=== PATIENT | female | born 1965 | race Caucasian/White ===

== ENCOUNTER 2021-12-11 00:26 | Emergency (ER) | payer OTHER ==
[~2021-12-11 00:26] MED LIST: ATIVAN0.5 MG PO; CARAFATE1 GM PO; COQ-10100 MG PO; COZAAR100 MG PO; FIORICET1 EACH PO; HABITROL7 MG TD; MAGNESIUM250 M1 PO; MEDROL 4MG DOSEP4 MG PO; NAPROSYN500 MG PO; NORVASC2.5 MG PO; OSTERA TABLET1 EACH PO; PEPCID AC20 MG PO; PERCOCET 10/321 EACH PO; PRAVACHOL20 MG PO; PROTONIX 40MG T40 MG PO; TENORMIN50 MG PO; VALSARTAN160 MG PO; ZANAFLEX4 M1 PO
[2021-12-11 01:14] LABS: BASOPHIL 0.6 % (0-2); HCT 43.8 % (37.0-47.0); LYMPHOCYTE 41.8 % (15-48); MCH 31.8 pg (25.0-31.0); MCHC 34.2 g/dL (32.0-36.0); MCV 92.8 fL (78.0-100.0); MONOCYTE 7.8 % (0-12); MPV 8.5 fL (6.0-9.5); NEUTROPHIL 47.5 % (41-80); NRBC 0; PLT 182 K/uL (150-400); RBC 4.72 M/uL (4.20-5.40); RDW 12.4 % (11.5-14.0); WBC 7.8 K/uL (4.0-10.5)
[2021-12-11 01:26] LABS: ALBUMIN 4.2 g/dL (3.4-5.0); BILIRUBIN - TOTAL 0.3 mg/dL (0.2-1.0); BUN/CREAT RATIO (CALC) 28.6 RATIO; CREATININE 0.7 mg/dL (0.51-0.95); GLOBULIN (CALCULATION) 3.2 g/dL; POTASSIUM 3.2 mmol/L (3.5-5.1); TOTAL PROTEIN 7.4 g/dL (6.4-8.2)
== END 2021-12-11 03:54 | disposition home or self-care (01) ==
LOC: FER 00:26
PROVIDERS: Emergency Medicine
DX: R07.89 Other chest pain (principal); I10 Essential (primary) hypertension; F17.200 Nicotine dependence, unspecified, uncomplicated; Z20.822 Contact with and (suspected) exposure to COVID-19; Z79.899 Other long term (current) drug therapy
CPT/HCPCS: 36415; 71045; 71275; 80053; 83735; 84484; 85025; 85379; Q9967; U0002

== ENCOUNTER 2022-05-08 08:21 | Emergency (ER) | payer OTHER ==
[2022-05-08 09:53] LABS: BASOPHIL 0.6 % (0-2); EOSINOPHIL 1.3 % (0-5); HCT 49.3 % (37.0-47.0); HGB 16.7 g/dl (12.5-16.0); MCHC 33.9 g/dL (32.0-36.0); MCV 94.4 fL (78.0-100.0); MPV 8.9 fL (6.0-9.5); NEUTROPHIL 54.7 % (41-80); NRBC 0; PLT 246 K/uL (150-400); RBC 5.22 M/uL (4.20-5.40); RDW 13.2 % (11.5-14.0); WBC 9.9 K/uL (4.0-10.5)
[2022-05-08 10:02] LABS: ALBUMIN 4.2 g/dL (3.4-5.0); BILIRUBIN - TOTAL 0.4 mg/dL (0.2-1.0); BUN/CREAT RATIO (CALC) 26.9 RATIO; CREATININE 0.67 mg/dL (0.51-0.95); GLOBULIN (CALCULATION) 3.8 g/dL; POTASSIUM 3.9 mmol/L (3.5-5.1)
[2022-05-08 10:41] LABS: BILIRUBIN NEGATIVE (NEGATIVE); BLOOD NEGATIVE Ery/uL (NEGATIVE); CLARITY CLEAR (CLEAR); COLOR YELLOW (YELLOW); GLUCOSE (U) NORMAL (NORMAL); LEUKOCYTES NEGATIVE Leu/uL (NEGATIVE); NITRITE NEGATIVE (NEGATIVE); PROTEIN NEGATIVE (NEGATIVE); SPECIFIC GRAVITY <=1.005 (1.001-1.030); UROBILINOGEN 0.2 mg/dL (0.2-1.0)
[2022-05-08] MEDS ORDERED: ANTI-DIARRHEAL2 MG PO (13:18)
[2022-05-08] MEDS ORDERED: DIFLUCAN150 MG PO (13:18)
[2022-05-08] MEDS ORDERED: BENTYL10 MG PO (13:18)
[2022-05-08] MEDS ORDERED: ONDANSETRON ODT4 MG PO (13:18)
== END 2022-05-08 13:42 | disposition home or self-care (01) ==
LOC: FER 08:21
PROVIDERS: Emergency Medicine
DX: K52.9 Noninfective gastroenteritis and colitis, unspecified (principal); Z88.0 Allergy status to penicillin
CPT/HCPCS: 36415; 80053; 81003; 82150; 83036; 83690; 85025; J7030; Q9967